=== PATIENT | male | born 1980 | race Caucasian/White ===

== ENCOUNTER 2019-03-06 19:15 | Emergency (ER) | payer MEDICAID ==
[~2019-03-06] VITALS: Ht 170.2 cm; Wt 94.8 kg
[2019-03-06 19:17] VITALS: Ht 170.2 cm; Wt 94.8 kg
[2019-03-06 21:01] VITALS: BP 146/89
== END 2019-03-06 21:01 | disposition home or self-care (01) ==
LOC: ED 19:15
DX: S63.601A Unspecified sprain of right thumb, initial encounter (principal); S60.221A Contusion of right hand, initial encounter; Y04.8XXA Assault by other bodily force, initial encounter; Y93.89 Activity, other specified; Y92.89 Other specified places as the place of occurrence of the external cause; Y99.8 Other external cause status